=== PATIENT | female | born 1990 | race Caucasian/White ===

== ENCOUNTER → 2022-01-02 | Day surgery (SDC) | payer OTHER ==
[~2022-01-02] VITALS: Ht 149.9 cm; Wt 59.0 kg
[2022-01-02 06:53] LABS: HCG (URINE) SCREEN NEGATIVE (NEGATIVE)
== END | disposition home or self-care (01) ==
LOC: FAS 06:11
PROVIDERS: Anesthesiology
DX: K22.2 Esophageal obstruction (principal); K31.7 Polyp of stomach and duodenum; T18.2XXA Foreign body in stomach, initial encounter; Z87.738 Personal history of other specified (corrected) congenital malformations of digestive system
CPT/HCPCS: 84703; J2250; J2704; J7120